=== PATIENT | male | born 1945 | race Caucasian/White ===

== ENCOUNTER 2018-12-30 21:44 | Observation (INO) | payer OTHER ==
[2018-12-30 22:32] LABS: ADD MAN DIFF? NO
[2018-12-30 22:33] LABS: BASOPHILS % 0.4 % (0.0-2.0); EOSINOPHILS % 0.4 % (0.0-7.0); HEMATOCRIT 39.2 % (42.0-52.0); HEMOGLOBIN 14.3 g/dl (14.0-18.0); LYMPHOCYTES # 2.8 10^3/ul (0.8-2.9); LYMPHOCYTES % 35.1 % (15.0-51.0); MEAN CORPUSCULAR HEMOGLOBIN 32.7 pg (29.0-33.0); MEAN CORPUSCULAR HGB CONC 36.5 g/dl (32.0-37.0); MEAN CORPUSCULAR VOLUME 89.7 fl (82.0-101.0); MEAN PLATELET VOLUME 10.2 fl (7.4-10.4); MONOCYTE # 0.6 10^3/ul (0.3-0.9); MONOCYTES % 6.9 % (0.0-11.0); NEUTROPHIL # 4.5 10^3/ul (1.6-7.5); NEUTROPHILS % 56.8 % (39.0-77.0); PLATELET COUNT 180 10^3/UL (140-415); RED BLOOD COUNT 4.37 10^6/ul (4.70-6.10); RED CELL DISTRIBUTION WIDTH 11.1 % (11.5-14.5)
[2018-12-30] MEDS: SOD CHLORIDE 0.9% 1,000 ML IV (22:33)
[2018-12-30] MEDS: ONDANSETRON 4 MG INJ IV (22:33)
[2018-12-30 22:51] LABS: ALANINE AMINOTRANSFERASE 32 IU/L (13-69); ALBUMIN 4.2 g/dl (3.3-4.9); ALKALINE PHOSPHATASE 74 IU/L (42-121); ANION GAP 12 (5-13); ASPARTATE AMINO TRANSFERASE 25 IU/L (15-46); BILIRUBIN,INDIRECT 0.8 mg/dl (0-1.1); BILIRUBIN,TOTAL 0.8 mg/dl (0.2-1.3); BLOOD UREA NITROGEN 10 mg/dl (7-20); CALCIUM 9.3 mg/dl (8.4-10.2); CARBON DIOXIDE 24 mmol/L (21-31); CHLORIDE 102 mmol/L (97-110); CREATININE 0.76 mg/dl (0.61-1.24); GLUCOSE 205 mg/dl (70-220); POTASSIUM 3.8 mmol/L (3.5-5.1); SODIUM 138 mmol/L (135-144); TOTAL PROTEIN 7.2 g/dl (6.1-8.1)
[2018-12-30 22:54] LABS: INR 1.01; PROTIME 13.4 Sec (11.9-14.9)
[2018-12-30] MEDS: LIDOCAINE/MYLANTA 40 ML BTL PO (23:02)
[2018-12-30] MEDS: DEXAMETHASONE 10 MG/ML 1 ML INJ IV (23:02)
[2018-12-31] MEDS ORDERED: ACETAMINOPHEN 325 MG TAB PO (01:00)
[2018-12-31] MEDS ORDERED: ACETAMINOPHEN 650 MG SUPP PR (02:00)
[2018-12-31] MEDS ORDERED: morphine 4 MG/ML VIAL IV (02:00)
[2018-12-31] MEDS: ACCU-CHEK XX (02:00)
[2018-12-31] MEDS ORDERED: ONDANSETRON 4 MG INJ IV (02:00)
[2018-12-31] MEDS ORDERED: GLUCAGON 1 MG INJ IM (02:30)
[2018-12-31] MEDS ORDERED: GLUCOSE GEL 15 GRAM TUBE PO ×2 (02:30)
[2018-12-31] MEDS ORDERED: DEXTROSE 50% 50 ML SYRINGE IV ×2 (02:30)
[2018-12-31] MEDS ORDERED: GLUCOSE GEL 15 GRAM TUBE BUCCAL (02:30)
[2018-12-31] MEDS: SOD CHLORIDE 0.9% 1,000 ML IV ×2 (02:41→11:48)
[2018-12-31] MEDS: CLONIDINE 0.2 MG/24 HR PATCH TRANSDERM (03:20)
[2018-12-31] MEDS: INSULIN ASPART [NOVOLOG] 3 ML PEN SC ×5 (05:43→20:58)
[2018-12-31] MEDS: ONDANSETRON 4 MG INJ IV (08:18)
[2018-12-31] MEDS: hydrALAzine 20 MG INJ IV (08:19)
[2018-12-31] MEDS ORDERED: PROPOFOL 200 MG INJ (13:55)
[2018-12-31] MEDS: METOCLOPRAMIDE 10 MG INJ IV ×2 (14:19→20:54)
[2018-12-31] MEDS: PANTOPRAZOLE (EC) 40 MG TAB PO (17:46)
[2019-01-01] MEDS: SOD CHLORIDE 0.9% 1,000 ML IV ×2 (00:30→08:00)
[2019-01-01] MEDS: ACCU-CHEK XX (02:00)
[2019-01-01] MEDS: INSULIN ASPART [NOVOLOG] 3 ML PEN SC ×4 (02:48→12:50)
[2019-01-01] MEDS: METOCLOPRAMIDE 10 MG INJ IV ×2 (02:52→09:14)
[2019-01-01] MEDS: MIDAZOLAM 1 MG/ML 2 ML INJ (02:53)
[2019-01-01] MEDS: LIDOCAINE 2% (SDV) 5 ML INJ (02:54)
[2019-01-01] MEDS: LIDOCAINE 4% SOLUTION 50 ML BTL (02:54)
[2019-01-01] MEDS: PANTOPRAZOLE (EC) 40 MG TAB PO (05:30)
== END 2019-01-01 14:10 | disposition home or self-care (01) ==
LOC: 2NE 12-31 00:56 → FTE 21:44
DX: R13.10 Dysphagia, unspecified (principal); K21.0 Gastro-esophageal reflux disease with esophagitis; I10 Essential (primary) hypertension; E11.9 Type 2 diabetes mellitus without complications; Z79.82 Long term (current) use of aspirin
CPT/HCPCS: 36415; 70490; 80053; 82962; 85025; 85610; 85730; 88305; 88313; 96374; 96375; 99285-25